=== PATIENT | male | born 1940 | race Caucasian/White ===

== ENCOUNTER → 2016-12-24 | Outpatient (CLI) | payer MEDICARE, BC ==
[~2016-12-24] MED LIST: ACETAMINOPHEN-H1 TA2 PO; COZAAR 50 MG TA50 MG PO; CRESTOR20 MG PO; FLOMAX 0.4MG C0.4 MG PO; FLONASE 50 MCG16 GM; FOLIC ACID800 MC1 PO; LOW DOSE ASPIRI81 MG PO; MULTIVITAMIN1 SGL PO; NIACIN500 MG PO; NITROGLYCERIN0.4 M1 SL; OMEGA-31000 M1 PO; PRILOSEC20 M1 PO; RAMIPRIL2.5 MG PO; RESTASIS0.05% OP; SYNTHROID0.025 MG PO; VIAGRA100 MG PO; VITAMIN C500 M1 PO
[2016-12-24 09:03] LABS: HEMOGLOBIN 12.3 g/dL (14.1-18.0); LYMPH # 1.6 K/mm3 (0.7-4.5); LYMPH % 26.6 % (10-50)
[2016-12-24 09:51] LABS: BUN 17 mg/dL (7-18)
[2016-12-24 09:53] LABS: GFR (ESTIMATED) 72 ML/MIN (>60)
== END ==
LOC: LAB 08:12
PROVIDERS: Family Medicine
DX: I25.10 Atherosclerotic heart disease of native coronary artery without angina pectoris (principal); E78.5 Hyperlipidemia, unspecified; E03.9 Hypothyroidism, unspecified